=== PATIENT | male | born 1965 | race Caucasian/White ===

== ENCOUNTER 2016-11-27 17:29 | Emergency (ER) | payer MEDICAID ==
[2016-11-27] VITALS (7 sets, daily range): BP systolic 105–154; BP diastolic 7–78; PULSE 40–96; RESP 20–56; TEMP 98; O2SAT 96–98
[~2016-11-27] VITALS: Ht 165.1 cm; Wt 82.3 kg
--- NOTE | 2016-11-27 19:04 | PD ---
HPI Chief Complaint: Pain: Acute or Chronic Time Seen by Provider: 19:03 Travel History International Travel<30 days: No Contact w/Intl Traveler<30days: No Traveled to known affect area: No History of Present Illness HPI 51-year-old male presents to the ED for evaluation of left foot pain. Onset this morning upon wakening, rated 10/10, worsened by attempted ambulation. The patient can identify no acute injury or recent overuse injury. He states he was fine last night when he went to bed. He endorses pain with attempted range of motion of the ankle. He denies numbness, tingling, weakness of the extremity. No treatment attempted at home. He denies chronic health problems and takes no daily medications. NKDA. PFSH Past Medical History Medical History: Denies Significant Hx Tetanus Vaccination: < 5 Years Influenza Vaccination: No Past Surgical History Eye Surgery: Yes Social History Alcohol Use: Yes (TWICE WEEKLY ) Tobacco Use: No Substance Use: No Allergies-Medications (Allergen,Severity, Reaction): Coded Allergies: No Known Allergies (Unverified , 08/01/14) Reported Meds & Prescriptions Reported Meds & Active Scripts Active Ibuprofen 800 Mg Tab 800 Mg PO Q8H Review of Systems Except as stated in HPI: all other systems reviewed are Neg Physical Exam Narrative GENERAL: Well-nourished, well-developed male in no acute distress. SKIN: Warm and dry. HEAD: Normocephalic. EYES: No scleral icterus. No injection or drainage. NECK: Supple, trachea midline. No JVD or lymphadenopathy. CARDIOVASCULAR: Regular rate and rhythm without murmurs, gallops, or rubs. RESPIRATORY: Breath sounds equal bilaterally. No accessory muscle use. GASTROINTESTINAL: Abdomen soft, non-tender, nondistended. MUSCULOSKELETAL: No cyanosis, or edema. FOCUSED LEFT LOWER EXTREMITY EXAM: 2+ radial pulse. The skin over the entire left foot is intact, no evidence of puncture or insect bite. There is mild edema of the medial malleolus. Squeeze test negative. Medial malleolus tender palpation. No tenderness to palpation of the lateral malleolus. No tenderness to palpation of the base of the fifth. No tenderness to palpation of the navicular. The patient is able to weakly flex and extend the ankle. No crepitus noted. He is able to wiggle the toes. Sensation is intact to light touch distally. Cap refill less than 2 seconds. BACK: Nontender without obvious deformity. No CVA tenderness. Data Data Last Documented VS Vital Signs Date Time Temp Pulse Resp B/P Pulse Ox O2 Delivery O2 Flow Rate FiO2 11/27/16 22:52 20 11/27/16 21:40 76 114/75 96 Nasal Cannula 11/27/16 17:34 98.0 Orders Ankle, Complete ([id number]) (11/27/16 18:15) Foot, Complete ([id number]) (11/27/16 18:15) Ice/Cold Pack (11/27/16 18:15) Ibuprofen (Motrin) (11/27/16 19:15) Electrocardiogram (11/27/16 19:56) Complete Blood Count With Diff (11/27/16 20:03) Comprehensive Metabolic Panel (11/27/16 20:03) Magnesium (Mg) (11/27/16 20:03) Ckmb (Isoenzyme) Profile (11/27/16 20:03) Troponin I (11/27/16 20:03) Act Partial Throm Time (Ptt) (11/27/16 20:03) Prothrombin Time / Inr (Pt) (11/27/16 20:03) Urinalysis - C+S If Indicated (11/27/16 20:03) Chest, Single Ap (11/27/16 20:03) Ecg Monitoring (11/27/16 20:03) Iv Access Insert/Monitor (11/27/16 20:03) Oximetry (11/27/16 20:03) Orthostatic Vital Signs (11/27/16 20:03) Electrocardiogram (11/27/16 20:35) CKMB (11/27/16 20:20) CKMB% (11/27/16 20:20) Labs Laboratory Tests Test 11/27/16 11/27/16 20:20 20:40 White Blood Count 12.3 TH/MM3 Red Blood Count 5.11 MIL/MM3 Hemoglobin 15.4 GM/DL Hematocrit 44.7 % Mean Corpuscular Volume 87.4 FL Mean Corpuscular Hemoglobin 30.2 PG Mean Corpuscular Hemoglobin 34.6 % Concent Red Cell Distribution Width 13.9 % Platelet Count 120 TH/MM3 Mean Platelet Volume 11.9 FL Neutrophils (%) (Auto) 59.8 % Lymphocytes (%) (Auto) 31.5 % Monocytes (%) (Auto) 6.3 % Eosinophils (%) (Auto) 1.4 % Basophils (%) (Auto) 1.0 % Neutrophils # (Auto) 7.4 TH/MM3 Lymphocytes # (Auto) 3.9 TH/MM3 Monocytes # (Auto) 0.8 TH/MM3 Eosinophils # (Auto) 0.2 TH/MM3 Basophils # (Auto) 0.1 TH/MM3 CBC Comment DIFF FINAL Differential Comment Prothrombin Time 10.9 SEC Prothromb Time International 1.0 RATIO Ratio Activated Partial 25.9 SEC Thromboplast Time Sodium Level 138 MEQ/L Potassium Level 4.5 MEQ/L Chloride Level 106 MEQ/L Carbon Dioxide Level 23.1 MEQ/L Anion Gap 9 MEQ/L Blood Urea Nitrogen 13 MG/DL Creatinine 0.99 MG/DL Estimat Glomerular Filtration 80 ML/MIN Rate Random Glucose 115 MG/DL Calcium Level 8.3 MG/DL Magnesium Level 2.1 MG/DL Total Bilirubin 0.8 MG/DL Aspartate Amino Transf 22 U/L (AST/SGOT) Alanine Aminotransferase 32 U/L (ALT/SGPT) Alkaline Phosphatase 109 U/L Total Creatine Kinase 127 U/L Creatine Kinase MB 0.8 NG/ML Troponin I LESS THAN 0.02 NG/ML Total Protein 7.3 GM/DL Albumin 3.6 GM/DL Urine Color YELLOW Urine Turbidity CLEAR Urine pH 5.5 Urine Specific [place] 1.017 Urine Protein NEG mg/dL Urine Glucose (UA) NEG mg/dL Urine Ketones NEG mg/dL Urine Occult Blood NEG Urine Nitrite NEG Urine Bilirubin NEG Urine Urobilinogen LESS THAN 2.0 MG/DL Urine Leukocyte Esterase NEG Urine RBC LESS THAN 1 /hpf Urine WBC LESS THAN 1 /hpf Urine Mucus FEW /lpf Microscopic Urinalysis Comment CULT NOT INDICATED MDM Medical Decision Making Medical Screen Exam Complete: Yes Emergency Medical Condition: Yes Differential Diagnosis Musculoskeletal pain versus ankle sprain versus arthritis versus soft tissue infection versus other Narrative Course 51-year-old male presents to the ED for evaluation of left foot pain. Onset this morning upon wakening, rated 10/10, worsened by attempted ambulation. The patient can identify no acute injury or recent overuse injury. He states he was fine last night when he went to bed. He endorses pain with attempted range of motion of the ankle. He denies numbness, tingling, weakness of the extremity. During the course of evaluation the patient was found to have a heart rate in the 40s. The monitor in the room showed bigeminy. I discussed this with the patient and his . The patient denies any history of headache , dizziness, chest pain, palpitations, nausea, vomiting, abdominal pain, dysuria , back pain. He denies previous cardiac history. He denies familial cardiac history. He has never smoked. Cardiac workup was initiated. Differential expanded to include cardiac arrhythmia versus electrolyte abnormality versus less likely ACS versus other. CBC: WBC 12.3, hemoglobin 15.4 CMP: Unremarkable UA: No culture indicated CXR: No acute disease per radiology read EKG: Rate 98, ventricular trigeminy. Borderline LAD., No ischemic changes. Reviewed by Dr. Jackson. Cardiac enzymes: Negative. From a cardiac standpoint the patient remained asymptomatic throughout the course of his evaluation. I discussed the problem of arrhythmia at length with the patient and his family. He was provided follow-up referral to the on-call home health care worker, Dr. Rodriguez. On further discussion of the ankle pain the patient does admit to previous injury playing soccer when he was a younger man. I discussed the osteoarthritis of the left ankle, symptomatic treatment. He was prescribed a short course of anti-inflammatory medications. The patient and his family indicated understanding of the discharge instructions and seems to grasp the necessity for cardiology follow-up. They are amenable to plan of care. The patient is stable and discharged home. Diagnosis Primary Impression: Osteoarthritis of left ankle Qualified Code: M19.072 - Osteoarthritis of left ankle, unspecified osteoarthritis type Additional Impression: Cardiac arrhythmia Qualified Code: I49.9 - Cardiac arrhythmia, unspecified cardiac arrhythmia type Referrals: Eva Rodriguez MD Patient Instructions: General Instructions, Osteoarthritis (ED), Premature Ventricular Contractions (ED) Additional Instructions: Rest, ice, elevate the extremity. Apply ice no longer than 10-15 minutes per hour a few times a day. 800 mg ibuprofen up to 3 times a day as needed for pain. Return to normal, gentle activity as tolerated. Follow-up with the home health care worker as discussed. Return to the ED for any urgent or emergent medical condition. Med/Other Pt SpecificInfo: Prescription(s) given Scripts Ibuprofen 800 Mg [id number] Mg PO Q8H #20 TAB Ref 0 Prov:Lora Jackson MD 11/27/16 Disposition: 01 DISCHARGE HOME Condition: Stable Ju Ren Nov 27, 2016 19:04
[2016-11-27] MEDS ORDERED: IBUPROFEN 800 MG TAB PO ONE (19:15)
--- NOTE | 2016-11-27 19:33 | RADRPT ---
EXAM DATE/TIME: 11/27/2016 18:41 [facility] COMPARISON: No previous studies available for comparison. INDICATIONS : Left ankle pain. Patient woke up with the pain. No known trauma. MEDICAL HISTORY : None. SURGICAL HISTORY : None. ENCOUNTER: Initial ACUITY: 1 day PAIN SCORE: 10/10 LOCATION: Left lateral ankle. FINDINGS: Mild soft tissue swelling is seen along the medial and lateral aspects of the ankle. Mild to moderate degenerative joint disease is identified. There is no evidence of acute fracture. Ankle mortise is well-maintained. There are no osteochondral lesions. CONCLUSION: Tibiotalar degenerative joint disease with mild bimalleolar soft tissue swelling. No evidence of acute fracture. Albin Montalvo MD on November 27, 2016 at 19:31 Board Certified Radiologist. This report was verified electronically.
--- NOTE | 2016-11-27 19:36 | RADRPT ---
EXAM DATE/TIME: 11/27/2016 18:44 [facility] COMPARISON: No previous studies available for comparison. INDICATIONS : Left foot pain. Patient woke up with pain. No known trauma. MEDICAL HISTORY : None. SURGICAL HISTORY : None. ENCOUNTER: Initial ACUITY: 1 day PAIN SCORE: 10/10 LOCATION: Left lateral foot. FINDINGS: Three view examination of the left foot demonstrates no soft tissue swelling, dislocation, or fractur e. The tarsal bones appear intact. The interphalangeal and metatarsophalangeal joints are intact. The calcaneus is intact. Bony mineralization is normal. CONCLUSION: No acute disease. Albin Montalvo MD on November 27, 2016 at 19:32 Board Certified Radiologist. This report was verified electronically.
--- NOTE | 2016-11-27 20:08 | PD ---
Physical Exam Narrative General: The patient is a well-developed well-nourished male in no acute distress. Head and Neck exam: Head is normocephalic atraumatic. Eyes: EOMI, pupils are equal round and reactive to light. Nose: Midline septum with pink mucous membranes Mouth: Dentition unremarkable. Moist mucus membranes. Posterior oropharynx is not erythematous. No tonsillar hypertrophy. Uvula midline. Airway patent. Neck: No palpable lymphadenopathy. No nuchal rigidity. No thyromegaly. Cardiovascular: Regularly irregular noted to have bigeminy on the monitor without murmurs, gallops, or rubs. No pulse deficit to the extremities and simultaneous auscultation and palpation of his radial artery. Lungs: Clear to auscultation bilaterally. No wheezes, rhonchi, or rales. Abdomen: Soft, without tenderness to palpation in all 4 quadrants of the abdomen. No guarding, rebound, or rigidity. Normal bowel sounds are audible. Extremities: No clubbing, cyanosis, or edema, except an area of interest, the left ankle. The patient is noted on examination of the left ankle to have slight edema to the medial aspect of the left ankle with tenderness on palpation distal and anterior to the medial malleolus. There is no crepitus or step-off. No ligament laxity noted. No erythema or ecchymosis. No other foot tenderness on palpation. 2+ pulses in all 4 extremities. Neurologic Exam: Grossly nonfocal. Skin Exam: No rash noted. Intact skin that is warm and dry. Data Data Last Documented VS Vital Signs Date Time Temp Pulse Resp B/P Pulse Ox O2 Delivery O2 Flow Rate FiO2 11/27/16 23:27 66 20 116/7 99 11/27/16 21:40 Nasal Cannula 11/27/16 17:34 98.0 Orders Ankle, Complete ([id number]) (11/27/16 18:15) Foot, Complete ([id number]) (11/27/16 18:15) Ice/Cold Pack (11/27/16 18:15) Ibuprofen (Motrin) (11/27/16 19:15) Electrocardiogram (11/27/16 19:56) Complete Blood Count With Diff (11/27/16 20:03) Comprehensive Metabolic Panel (11/27/16 20:03) Magnesium (Mg) (11/27/16 20:03) Ckmb (Isoenzyme) Profile (11/27/16 20:03) Troponin I (11/27/16 20:03) Act Partial Throm Time (Ptt) (11/27/16 20:03) Prothrombin Time / Inr (Pt) (11/27/16 20:03) Urinalysis - C+S If Indicated (11/27/16 20:03) Chest, Single Ap (11/27/16 20:03) Ecg Monitoring (11/27/16 20:03) Iv Access Insert/Monitor (11/27/16 20:03) Oximetry (11/27/16 20:03) Orthostatic Vital Signs (11/27/16 20:03) Electrocardiogram (11/27/16 20:35) CKMB (11/27/16 20:20) CKMB% (11/27/16 20:20) Labs Laboratory Tests Test 11/27/16 11/27/16 20:20 20:40 White Blood Count 12.3 TH/MM3 Red Blood Count 5.11 MIL/MM3 Hemoglobin 15.4 GM/DL Hematocrit 44.7 % Mean Corpuscular Volume 87.4 FL Mean Corpuscular Hemoglobin 30.2 PG Mean Corpuscular Hemoglobin 34.6 % Concent Red Cell Distribution Width 13.9 % Platelet Count 120 TH/MM3 Mean Platelet Volume 11.9 FL Neutrophils (%) (Auto) 59.8 % Lymphocytes (%) (Auto) 31.5 % Monocytes (%) (Auto) 6.3 % Eosinophils (%) (Auto) 1.4 % Basophils (%) (Auto) 1.0 % Neutrophils # (Auto) 7.4 TH/MM3 Lymphocytes # (Auto) 3.9 TH/MM3 Monocytes # (Auto) 0.8 TH/MM3 Eosinophils # (Auto) 0.2 TH/MM3 Basophils # (Auto) 0.1 TH/MM3 CBC Comment DIFF FINAL Differential Comment Prothrombin Time 10.9 SEC Prothromb Time International 1.0 RATIO Ratio Activated Partial 25.9 SEC Thromboplast Time Sodium Level 138 MEQ/L Potassium Level 4.5 MEQ/L Chloride Level 106 MEQ/L Carbon Dioxide Level 23.1 MEQ/L Anion Gap 9 MEQ/L Blood Urea Nitrogen 13 MG/DL Creatinine 0.99 MG/DL Estimat Glomerular Filtration 80 ML/MIN Rate Random Glucose 115 MG/DL Calcium Level 8.3 MG/DL Magnesium Level 2.1 MG/DL Total Bilirubin 0.8 MG/DL Aspartate Amino Transf 22 U/L (AST/SGOT) Alanine Aminotransferase 32 U/L (ALT/SGPT) Alkaline Phosphatase 109 U/L Total Creatine Kinase 127 U/L Creatine Kinase MB 0.8 NG/ML Troponin I LESS THAN 0.02 NG/ML Total Protein 7.3 GM/DL Albumin 3.6 GM/DL Urine Color YELLOW Urine Turbidity CLEAR Urine pH 5.5 Urine Specific [place] 1.017 Urine Protein NEG mg/dL Urine Glucose (UA) NEG mg/dL Urine Ketones NEG mg/dL Urine Occult Blood NEG Urine Nitrite NEG Urine Bilirubin NEG Urine Urobilinogen LESS THAN 2.0 MG/DL Urine Leukocyte Esterase NEG Urine RBC LESS THAN 1 /hpf Urine WBC LESS THAN 1 /hpf Urine Mucus FEW /lpf Microscopic Urinalysis Comment CULT NOT INDICATED MDM Medical Record Reviewed: Yes Supervised Visit with GALLITO: Yes Interpretation(s) Laboratory Tests Test 11/27/16 11/27/16 20:20 20:40 White Blood Count 12.3 TH/MM3 (4.0-11.0) Platelet Count 120 TH/MM3 (150-450) Mean Platelet Volume 11.9 FL (7.0-11.0) Estimat Glomerular Filtration 80 ML/MIN (>89) Rate Random Glucose 115 MG/DL (74-106) Calcium Level 8.3 MG/DL (8.5-10.1) Troponin I LESS THAN 0.02 NG/ML (0.02-0.05) Urine Mucus FEW /lpf (OCC) Last Impressions Chest X-Ray 11/27/162002 Signed Impressions: Service Date/Time: Sunday, November 27, 2016 20:12 - CONCLUSION: No acute disease. Albin Montalvo MD Foot X-Ray 11/27/[id number] Signed Impressions: Service Date/Time: Sunday, November 27, 2016 18:44 - CONCLUSION: No acute disease. Albin Montalvo MD Ankle X-Ray 11/27/[id number] Signed Impressions: Service Date/Time: Sunday, November 27, 2016 18:41 - CONCLUSION: Tibiotalar degenerative joint disease with mild bimalleolar soft tissue swelling. No evidence of acute fracture. Albin Montalvo MD Narrative Course I, Dr. Jackson, have reviewed the advance practice practitioner's documentation and am in agreement, met with the patient face to face, made the diagnosis, and the medical decision making was done by me. The patient was initially evaluated by Ju, please see her complete history and physical. *My assessment and Findings: The patient is a 51-year-old male who presents to [facility] emergency Department with a history of ankle pain and swelling. The patient on arrival to the emergency department is noted to have bradycardia and was brought back to the emergency department immediately. On reevaluation and repeat vital signs on initial arrival back into the emergency department that the patient is noted to have a heart rate in the 80s. The patient was placed on telemetry and monitored while workup ensued for his ankle pain. The patient again went down into the 40s and was noted to have frequent PVCs, some evidence of bigeminy. The patient denies having any cardiac history. An EKG was done that shows a heart rate currently of 98 with frequent premature ventricular contractions and a rhythm of bigeminy/trigeminy. No acute ST segment elevation is noted. T waves are inverted in aVL. Regarding the patient's social history, the patient reports that he drinks 7 beers, one time a week. Laboratory studies have been ordered and cardiac enzymes have been ordered. The patient's cardiac arrhythmia could be related to an electrolyte abnormality. A chest x-ray has been ordered. Laboratory studies reveal a white count of 12.3, hemoglobin 15.4, platelets 120 , cardiac enzymes are unremarkable, PT PTT within normal limits, urinalysis within normal limits. Chest x-ray shows no acute abnormality, ankle x-ray shows a tibiotalar degenerative joint disease with mild bimalleolar soft tissue swelling, no evidence of acute fracture abnormality. The patient during his observation in the emergency department on telemetry continued to be asymptomatic. The patient was repeatedly reevaluated. The patient prefers to go home and follow-up with his primary care physician and a director inbound sales as an outpatient. The patient was given the information regarding follow-up. Diagnosis Primary Impression: Cardiac arrhythmia Qualified Code: I49.9 - Cardiac arrhythmia, unspecified cardiac arrhythmia type Scripts Ibuprofen 800 Mg [id number] Mg PO Q8H #20 TAB Ref 0 Prov:Lora Jackson MD 11/27/16 Lora Jackson MD Nov 27, 2016 20:08
[2016-11-27 20:37] LABS: AUTOMATED NEUTROPHIL # 7.4 TH/MM3 (1.8-7.7); BASOPHIL # 0.1 TH/MM3 (0-0.2); EOSINOPHIL # 0.2 TH/MM3 (0-0.4); EOSINOPHIL % 1.4 % (0.0-4.0); HEMATOCRIT 44.7 % (39.0-51.0); HEMO FLAGS DIFF FINAL; LYMPH % 31.5 % (9.0-44.0); LYMPHOCYTE # 3.9 TH/MM3 (1.0-4.8); MEAN CELL VOLUME 87.4 FL (80.0-100.0); MEAN CORPUSCULAR HEMOGLOBIN 30.2 PG (27.0-34.0); MEAN CORPUSCULAR HGB CONC 34.6 % (32.0-36.0); MONO % 6.3 % (0.0-8.0); NEUT % 59.8 % (16.0-70.0); PLATELET COUNT 120 TH/MM3 (150-450); RED BLOOD COUNT 5.11 MIL/MM3 (4.50-5.90); RED CELL DISTRIBUTION WIDTH 13.9 % (11.6-17.2); WHITE BLOOD COUNT 12.3 TH/MM3 (4.0-11.0)
[2016-11-27 20:50] LABS: APTT (PATIENT) 25.9 SEC (24.3-30.1); PROTHROMBIN TIME - PATIENT 10.9 SEC (9.8-11.6)
--- NOTE | 2016-11-27 20:52 | RADRPT ---
EXAM DATE/TIME: 11/27/2016 20:12 [facility] COMPARISON: No previous studies available for comparison. INDICATIONS : Evaluate lung status. MEDICAL HISTORY : None. SURGICAL HISTORY : None. ENCOUNTER: Initial ACUITY: 1 day PAIN SCORE: Non-responsive. LOCATION: Bilateral chest FINDINGS: A single view of the chest demonstrates the lungs to be symmetrically aerated without evidence of mas s, infiltrate or effusion. The cardiomediastinal contours are unremarkable. Osseous structures are intact. CONCLUSION: No acute disease. Albin Montalvo MD on November 27, 2016 at 20:50 Board Certified Radiologist. This report was verified electronically.
[2016-11-27 20:53] LABS: BLOOD, URINE NEG (NEG); COMMENT (UR) CULT NOT INDICATED; CULTURE IF INDICATED CULT NOT INDICATED; GLUCOSE,URINE NEG (NEG); KETONE, URINE NEG (NEG); MUCUS URINE FEW /lpf (OCC); NITRITE,URINE NEG (NEG); PH, URINE 5.5 (5.0-8.5); URINE COLOR YELLOW (YELLW/STRAW)
[2016-11-27 21:14] LABS: ALKALINE PHOSPHATASE 109 U/L (45-117); ALT (GPT) 32 U/L (12-78); ANION GAP 9 MEQ/L (5-15); AST (GOT) 22 U/L (15-37); BICARBONATE 23.1 MEQ/L (21.0-32.0); BLOOD UREA NITROGEN 13 MG/DL (7-18); CHLORIDE 106 MEQ/L (98-107); CREATINE KINASE 127 U/L (39-308); GLOMERULAR FILTRATION RATE 80 ML/MIN (>89); MAGNESIUM 2.1 MG/DL (1.5-2.5); POTASSIUM 4.5 MEQ/L (3.5-5.1); SODIUM (NA) 138 MEQ/L (136-145); TOTAL BILIRUBIN ADULT 0.8 MG/DL (0.2-1.0)
[2016-11-27 21:26] LABS: CKMB 0.8 NG/ML (0.5-3.6)
[2016-11-27] MEDS ORDERED: IBUP800T23 PO (21:56)
--- NOTE | 2016-11-28 14:23 | EKG ---
Date Performed: 11/27/2016 Time Performed: 20:05:27 PTAGE: 51 years EKG: Sinus rhythm WITH TRIGEMINY BORDERLINE LEFT AXIS DEVIATION NONSPECIFIC T-WAVE ABNORMALITY BORDERLINE ECG NO PREVIOUS TRACING DOCTOR: Ramez Sanchez Interpretating Date/Time 12/05/2016 07:12:40
--- NOTE | 2016-12-04 15:02 | EKG ---
Date Performed: 11/27/2016 Time Performed: 20:40:05 PTAGE: 51 years EKG: Sinus rhythm WITH FREQUENT VENTRICULAR PREMATURE COMPLEXES IN A BIGEMINAL PATTERN NONSPECIFIC ST & T-WAVE ABNORMA LITY ABNORMAL RHYTHM ECG PREVIOUS TRACING : 11/27/2016 20.05 DOCTOR: Amaury Ballard Interpretating Date/Time 12/04/2016 15:01:33
== END 2016-11-27 23:29 | disposition home or self-care (01) ==
LOC: NEPC 17:29
DX: M19.072 Primary osteoarthritis, left ankle and foot (principal); I49.3 Ventricular premature depolarization
CPT/HCPCS: 71010; 73610; 73630; 80053; 81001; 82550; 82552; 83735; 84484; 85025; 85610; 85730; 93005